=== PATIENT | male | born 1970 | race Caucasian/White ===

== ENCOUNTER 2020-03-06 05:04 | Emergency (ER) | payer BC, OTHER ==
[~2020-03-06] VITALS: Ht 190.5 cm; Wt 122.8 kg
--- OUTSIDE RECORDS SUMMARY | 2020-03-06 05:11 | XMS REPORT | Continuity of Care Document ---
Author Organization Unknown Address Unknown Phone Unavailable Allergies There is no data. Medications There is no data. Problems There is no data. Procedures There is no data. Results There is no data. Encounters ACCT No. Visit Date/Time Discharge Status Pt. Type Provider Facility Loc./Unit Complaint [id number] 03/06/2020 05:09:[address] Emergency EMMANUEL INIGUEZ DO Via [facility] ER FS WEAKNESS,LIGHT HEADED,TROBLE SWALLOWING
--- NOTE | 2020-03-06 05:33 | ED General ---
General Chief Complaint: General Problems/Pain Stated Complaint: WEAKNESS,LIGHT HEADED,TROBLE SWALLOWING Nursing Triage Note: pt states he started feeling dizzy at work, states he has had thick oral secretions the past 2 days, took an otc cold and flu medication, pt feels like breathing is labored at times, no increased temp Nursing Sepsis Screen: No Definite Risk Source of Information: Patient Exam Limitations: No Limitations History of Present Illness Date Seen by Provider: Mar 06, 2020 Time Seen by Provider: 05:15 Initial Comments 49-year-old male presents with 2 day history of feeling dizzy at work and having thick oral secretions. Patient has been taking [id number] cold and flu medication feels like his breathing gets labored at times but he has no fever and no headache. Patient is aware of the risks of coronavirus. He has not been traveling has not been anyone sick he has no shortness of breath has no fevers and he has no lower tract respiratory infection. He denies any history of cardiac pulmonary renal or GI disease. He has seasonal allergies. He states he feels dizzy when he sits down with standing up he feels better and is dispensed standing since he came into the emergency room. Patient has given informed consent for diagnostic and therapeutic services and influenza A and B screen and rapid strep screen has been ordered and obtained. Timing/Duration: 1-2 Days Severity: Moderate Modifying Factors: improves with Movement (worse when sitting) Associated Systoms: Weakness, Other (dizziness with sitting) Allergies and Home Medications Allergies Coded Allergies: No Known Drug Allergies (Unverified , 03/06/20) Patient Home Medication List Home Medication List Reviewed: Yes Review of Systems Review of Systems Constitutional: see HPI, dizziness (when sitting), weakness EENTM: see HPI, throat pain (and increased discharge) Respiratory: see HPI, phlegm, other (increased oral secretions and throat secretions no stridor no wheezing) Cardiovascular: no symptoms reported (is better standing up) Gastrointestinal: no symptoms reported Genitourinary: no symptoms reported Musculoskeletal: no symptoms reported Skin: no symptoms reported Psychiatric/Neurological: No Symptoms Reported Hematologic/Lymphatic: No Symptoms Reported Immunological/Allergic: no symptoms reported Past Dfjoyen-Adrzfr-Scyfft Hx Past Med/Social Hx: Reviewed Nursing Past Med/Soc Hx Patient Social History Alcohol Use: Occasionally Uses Recreational Drug Use: No Smoking Status: Never a Smoker Recent Foreign Travel: No Contact w/Someone Who Travel: No Recent Infectious Disease Expo: No Recent Hopitalizations: No Physical Abuse: No Sexual Abuse: No Mistreated: No Fear: No Seasonal Allergies Seasonal Allergies: No Past Medical History Surgeries: No Respiratory: No Cardiac: No Neurological: No Genitourinary: No Gastrointestinal: No Musculoskeletal: No Endocrine: No HEENT: No Cancer: No Psychosocial: No Integumentary: No Blood Disorders: No Physical Exam Vital Signs Vital Signs - First Documented 03/06/20 05:17 Temp 36.6 Pulse 99 Resp 18 B/P (MAP) 170/103 (125) Pulse Ox 97 O2 Delivery Room Air Capillary Refill : Less Than 3 Seconds Height, Weight, BMI Height: '" Weight: lbs. oz. kg; 33.00 BMI Method: General Appearance: WD/WN, Anxious, Other (dizziness and increased oral secretions but no wheezing or stridor no shortness of breath no fever) Eyes: Bilateral Eye Normal Inspection, Bilateral Eye PERRL, Bilateral Eye EOMI, Bilateral Eye Conjunctivae Pale (no evidence of conjunctival injection) HEENT: PERRL/EOMI, TMs Normal, Normal ENT Inspection, Pharynx Normal, Moist Mucous Membranes Neck: Full Range of Motion, Normal Inspection, Non Tender, Supple Respiratory: Chest Non Tender, Lungs Clear, Normal Breath Sounds, No Accessory Muscle Use, No Respiratory Distress (no stridor no shortness of breath) Cardiovascular: Regular Rate, Rhythm, No Edema, No Gallop, No JVD, No Murmur, Normal Peripheral Pulses Gastrointestinal: Normal Bowel Sounds, No Organomegaly, No Pulsatile Mass, Non Tender, Soft Back: Normal Inspection, No CVA Tenderness, No Vertebral Tenderness Extremity: Normal Capillary Refill, Normal Inspection, Normal Range of Motion, Non Tender, No Calf Tenderness Neurologic/Psychiatric: Alert, Oriented x3, No Motor/Sensory Deficits, Normal Mood/Affect, manager acquisition II-XII Norm as Tested Skin: Normal Color, Warm/Dry Lymphatic: No Adenopathy Progress/Results/Core Measures Suspected Sepsis Recent Fever Within 48 Hours: No Infection Criteria Present: None New/Unexplained Altered Menta: No Sepsis Screen: No Definite Risk SIRS Temperature: Pulse: 99 Respiratory Rate: 18 Blood Pressure 170 /103 Mean: 125 Results/Orders Lab Results Laboratory Tests Test 03/06/20 05:25 Range/Units Group A Streptococcus Screen NEGATIVE NEGATIVE Micro Results Microbiology 03/06/20 Influenza Types A,B Antigen (DONNA) - Final, Complete My Orders Orders - EMMANUEL INIGUEZ DO Influenza A And B Antigens (03/06/20 05:26) Rapid Strep A Screen (03/06/20 05:26) Vital Signs/I&O 03/06/20 05:17 Temp 36.6 Pulse 99 Resp 18 B/P (MAP) 170/103 (125) Pulse Ox 97 O2 Delivery Room Air Capillary Refill : Less Than 3 Seconds Blood Pressure Mean: 125 Progress Note : Time: 06:22 Progress Note Patient has negative influenza A and influenza B is negative rapid strep. He is continuing to walk in the room and states that he has no symptoms when he is walking but feels dizzy when he sits down there does not appear to be a positional component to the dizziness. Patient's tympanic membranes are both normal. Patient will follow up with his primary care provider drink plenty of fluids concentrate on rest and monitor for fevers headaches shortness of breath or any signs of lower tract infection. I do not feel he has coronavirus and has no symptoms nor risk factors of such. Departure Impression Primary Impression: Fatigue Additional Impressions: Dehydration Viral syndrome Disposition: 01 HOME, SELF-CARE Condition: Improved Departure-Patient Inst. Decision time for Depature: 06:24 Referrals: NO,LOCAL PHYSICIAN (PCP) Primary Care Physician Patient Instructions: Dehydration, Adult (DC), Dizziness, Nonvertigo, (DC), Viral Pharyngitis Add. Discharge Instructions: She was negative for influenza A and B and rapid strep. Appears to have mild dehydration and most likely has a viral pharyngitis. Patient should hydrate with water continue with Tylenol as needed monitor for fevers shortness of breath or tract infection symptoms. Patient will follow-up with his primary care provider or the community care clinic. All discharge instructions reviewed with patient and/or family. Voiced understanding. Work/School Note: Work Release Form Date Seen in the Emergency Department: Mar 06, 2020 Return to Work: Mar 10, 2020 Restrictions: No Restrictions EMMANUEL INIGUEZ DO Mar 06, 2020 05:33
[2020-03-06 06:30] VITALS: BP 170/103
== END 2020-03-06 06:30 | disposition home or self-care (01) ==
LOC: ER FS 05:09
DX: B34.9 Viral infection, unspecified (principal); R53.83 Other fatigue; E86.0 Dehydration
CPT/HCPCS: 87430; 87804

== ENCOUNTER → 2020-03-12 | Outpatient (CLI) | payer BC ==
[2020-03-12 08:33] LABS: BASOPHILS # (AUTO) 0.1 10^3/uL (0.0-0.1); BASOPHILS % (AUTO) 1 % (0-10); EOSINOPHILS # (AUTO) 0.1 10^3/uL (0.0-0.3); EOSINOPHILS % (AUTO) 2 % (0-10); HEMATOCRIT 46 % (40-54); HEMOGLOBIN 16.3 G/DL (13.3-17.7); LYMPHOCYTES % (AUTO) 32 % (12-44); MEAN CORPUSCULAR HEMOGLOBIN 30 PG (25-34); MEAN CORPUSCULAR HGB CONC 35 G/DL (32-36); MEAN CORPUSCULAR VOLUME 84 FL (80-99); MEAN PLATELET VOLUME 8.9 FL (7.4-10.4); MONOCYTES # (AUTO) 0.5 X 10^3 (0.0-1.0); MONOCYTES % (AUTO) 8 % (0-12); NEUTROPHILS # (AUTO) 3.5 X 10^3 (1.8-7.8); NEUTROPHILS % (AUTO) 57 % (42-75); PLATELET COUNT 310 10^3/uL (130-400); RED CELL DISTRIBUTION WIDTH 12.2 % (10.0-14.5); WHITE BLOOD COUNT 6.2 10^3/uL (4.3-11.0)
[2020-03-12 08:52] LABS: ALANINE AMINOTRANSFERASE 80 U/L (0-55); ALBUMIN 4.7 GM/DL (3.2-4.5); ALKALINE PHOSPHATASE 109 U/L (40-136); BILIRUBIN,TOTAL 0.5 MG/DL (0.1-1.0); BUN/CREATININE RATIO 11; CALCIUM 9.9 MG/DL (8.5-10.1); CARBON DIOXIDE 29 MMOL/L (21-32); CHLORIDE 98 MMOL/L (98-107); CREATININE SERUM 1.05 MG/DL (0.60-1.30); GFR ESTIMATED > 60; GLUCOSE 101 MG/DL (70-105); POTASSIUM 4.2 MMOL/L (3.6-5.0); SODIUM 137 MMOL/L (135-145)
[2020-03-12 14:57] LABS: TRIGLYCERIDES 196 MG/DL (<150); VLDL CHOLESTEROL 39 MG/DL (5-40)
[2020-03-12 15:02] LABS: CHOLESTEROL 195 MG/DL (< 200)
[2020-03-12 15:03] LABS: HDL CHOLESTEROL 33 MG/DL (40-60)
== END ==
LOC: LAB FS 03-11 10:25
PROVIDERS: ATTEND Family Medicine
DX: Z00.00 Encounter for general adult medical examination without abnormal findings (principal); Z13.1 Encounter for screening for diabetes mellitus; R53.83 Other fatigue; R63.1 Polydipsia
CPT/HCPCS: 36415; 80053; 80061; 83036; 85025

== ENCOUNTER 2020-04-03 03:53 | Emergency (ER) | payer BC ==
[~2020-04-03] VITALS: Ht 190 cm; Wt 122.5 kg
--- OUTSIDE RECORDS SUMMARY | 2020-04-03 04:00 | XMS REPORT | Continuity of Care Document ---
Author Organization Unknown Address Unknown Phone Unavailable Allergies Active Description Code Type Severity Reaction Onset Reported/Identified Relationship to Patient Clinical Status Yes No Known Drug Allergies [id number] Drug Allergy Unknown N/A 03/06/2020 Medications There is no data. Problems Date Dx Coded Attending Type Code Diagnosis Diagnosed By 03/06/2020 HIRA , EMMANUEL H Ot B34.9 VIRAL INFECTION, UNSPECIFIED 03/06/2020 HIRA DO, EMMANUEL H Ot E86.0 DEHYDRATION 03/06/2020 HIRA DO, EMMANUEL H Ot R4 2 DIZZINESS AND GIDDINESS 03/06/2020 HIRA DO, EMMANUEL H Ot R53.83 OTHER FATIGUE 03/08/2020 HIRA DO, EMMANUEL H Ot B34.9 VIRAL INFECTION, UNSPECIFIED 03/08/2020 HIRA DO, EMMANUEL H Ot E86.0 DEHYDRATION 03/08/2020 HIRA DO, EMMANUEL H Ot R4 2 DIZZINESS AND GIDDINESS 03/08/2020 HIRA DO, EMMANUEL H Ot R53.83 OTHER FATIGUE 03/13/2020 GODWIN MCCARTNEY MD Ot R53. 83 OTHER FATIGUE 03/13/2020 GODWIN MCCARTNEY MD Ot R63. 1 POLYDIPSIA 03/13/2020 GODWIN MCCARTNEY MD Ot Z00. 00 ENCNTR FOR GENERAL ADULT MEDICAL EXAM W/ 03/13/2020 GODWIN MCCARTNEY MD Ot Z13. 1 ENCOUNTER FOR SCREENING FOR DIABETES THANH 03/17/2020 GODWIN MCCARTNEY MD Ot R53. 83 OTHER FATIGUE 03/17/2020 GODWIN MCCARTNEY MD Ot R63. 1 POLYDIPSIA 03/17/2020 GODWIN MCCARTNEY MD Ot Z00. 00 ENCNTR FOR GENERAL ADULT MEDICAL EXAM W/ 03/17/2020 GODWIN MCCARTNEY MD Ot Z13. 1 ENCOUNTER FOR SCREENING FOR DIABETES THANH 03/26/2020 GODWIN MCCARTNEY MD Ot R53. 83 OTHER FATIGUE 03/26/2020 GODWIN MCCARTNEY MD Ot R63. 1 POLYDIPSIA 03/26/2020 BIB OSEGUERA, GODWIN Mendiola Ot Z00. 00 ENCNTR FOR GENERAL ADULT MEDICAL EXAM W/ 03/26/2020 GODWIN MCCARTNEY MD Ot Z13. 1 ENCOUNTER FOR SCREENING FOR DIABETES THANH Procedures There is no data. Results Test Result Range Streptococcus pyogenes antigen detection - 03/06/20 05:25 Streptococcus pyogenes antigen detection NEGATIVE NEGATIVE Influenza virus A and B antigen detectio n - 03/06/20 05:25 FLU RESULT NEGATIVE FOR INFLUENZA A AND B ANTIGENS BY IA NRG Bacterial throat culture - 03/06/20 05:2 5 Bacterial throat culture [id number] NRG FREE TEXT EXTERNAL PLUS RARE COLONY OF BETA STREPT OCOCCUS NRG QUANTITY OF GROWTH Abundant Growth NRG FREE TEXT EXTERNAL 2 G. NRG Complete blood count (CBC) with automate d white blood cell (WBC) differential - 03/12/20 08:19 Blood leukocytes automated count (number/volume) 6.2 10*3/uL 4.3-11.0 Blood erythrocytes automated count (number/volume) 5.51 10*6/uL 4.35-5.85 Venous blood hemoglobin measurement (mass/volume) 16.3 g/dL 13.3-17.7 Blood hematocrit (volume fraction) 46 % 40-54 Automated erythrocyte mean corpuscular volume 84 [ foz_us] 80-99 Automated erythrocyte mean corpuscular h emoglobin (mass per erythrocyte) 30 pg 25-34 Automated erythrocyte mean corpuscular h emoglobin concentration measurement (mass/volume) 35 g/dL 32-36 Automated erythrocyte distribution width ratio 12. 2 % 10.0- 14.5 Automated blood platelet count (count/volume) 310 10*3/uL 130-400 Automated blood platelet mean volume measurement 8.9 [foz_us] 7.4-10.4 Automated blood neutrophils/100 leukocytes 57 % 42-75 Automated blood lymphocytes/100 leukocytes 32 % 12-44 Blood monocytes/100 leukocytes 8 % 0-12 Automated blood eosinophils/100 leukocytes 2 % 0-10 Automated blood basophils/100 leukocytes 1 % 0-10 Blood neutrophils automated count (number/volume) 3.5 10*3 1.8-7.8 Blood lymphocytes automated count (number/volume) 2.0 10*3 1.0-4.0 Blood monocytes automated count (number/volume) 0. 5 10*3 0.0-1.0 Automated eosinophil count 0.1 10*3/uL 0 .0-0.3 Automated blood basophil count (count/volume) 0.1 10*3/uL 0.0-0.1 Comprehensive metabolic panel - 03/12/20 08:19 Serum or plasma sodium measurement (moles/volume) 137 mmol/L 135-145 Serum or plasma potassium measurement (moles/volume) 4.2 mmol/L 3.6-5.0 Serum or plasma chloride measurement (moles/volume) 98 mmol/L 98-107 Carbon dioxide 29 mmol/L 21-32 Serum or plasma anion gap determination (moles/volume) 10 mmol/L 5-14 Serum or plasma urea nitrogen measurement (mass/volume ) 12 mg/dL 7-18 Serum or plasma creatinine measurement (mass/volume) 1.05 mg/dL 0.60-1.30 Serum or plasma urea nitrogen/creatinine mass ratio 11 NRG Serum or plasma creatinine measurement w ith calculation of estimated glomerular filtration rate > NRG Serum or plasma glucose measurement (mass/volume) 101 mg/dL 70-105 Serum or plasma calcium measurement (mass/volume) 9.9 mg/dL 8.5-10.1 Serum or plasma total bilirubin measurement (mass/volu me) 0.5 mg/dL 0.1-1.0 Serum or plasma alkaline phosphatase mu surement (enzymatic activity/volume) 109 U/L 40-136 Serum or plasma aspartate aminotransfera se measurement (enzymatic activity/volume) 42 U/L 5-34 Serum or plasma alanine aminotransferase measurement (enzymatic activity/volume) 80 U/L 0-55 Serum or plasma protein measurement (mass/volume) 8.0 g/dL 6.4-8.2 Serum or plasma albumin measurement (mass/volume) 4.7 g/dL 3.2-4.5 Lipid 1996 panel - 03/12/20 08:19 Serum or plasma triglyceride measurement (mass/volume) 196 mg/dL <150 Serum or plasma cholesterol measurement (mass/volume) 195 mg/dL < 200 Serum or plasma cholesterol in HDL measurement (mass/v olume) 33 mg/dL 40-60 Cholesterol in LDL [mass/volume] in serum or plasma by direct assay 154 mg/dL 1-129 Serum or plasma cholesterol in VLDL measurement (mass/ volume) 39 mg/dL 5-40 Hemoglobin A1c measurement - 03/12/20 08 :19 Blood hemoglobin A1C measurement (mass/volume) 4.8 % 4.0-5.6 MEAN BLOOD GLUCOSE 91 % <=126 Encounters ACCT No. Visit Date/Time Discharge Status Pt. Type Provider Facility Loc./Unit Complaint [id number] 03/12/2020 08:14:00 23:59:59 CLS Outpatient BIB OSEGUERA, GODWIN Mendiola Via [facility] LAB FS FATIGUE [id number] 03/06/2020 05:09:00 06:30:00 DIS Emergency EMMANUEL INIGUEZ DO Via [facility] ER FS WEAKNESS,LIGHT HEADED,T ROUBLE SWALLOWING
[2020-04-03 04:13] LABS: BILIRUBIN,URINE NEGATIVE (NEGATIVE); CLARITY,URINE CLEAR; COLOR,URINE YELLOW; GLUCOSE, URINE (UA) NEGATIVE (NEGATIVE); KETONES,URINE NEGATIVE (NEGATIVE); LEUKOCYTE ESTERASE ,URINE NEGATIVE (NEGATIVE); NITRITE,URINE NEGATIVE (NEGATIVE); PROTEIN,URINE NEGATIVE (NEGATIVE)
[2020-04-03] MEDS ORDERED: ASPIRIN 81 MG CHEW (CHILDREN'S ASA) PO ONE (04:15)
[2020-04-03 04:19] LABS: BACTERIA,URINE NEGATIVE /HPF
[2020-04-03 04:31] LABS: AMPHETAMINE SCREEN, URINE NEGATIVE (NEGATIVE); BARBITURATE SCREEN URINE NEGATIVE (NEGATIVE); BENZODIAZEPINES SCREEN URINE NEGATIVE (NEGATIVE); CANNABINOID SCREEN, URINE NEGATIVE (NEGATIVE); COCAINE SCREEN URINE NEGATIVE (NEGATIVE); METHADONE STAT NEGATIVE (NEGATIVE); METHAMPHETAMINE SCREEN URINE S NEGATIVE (NEGATIVE); OPIATE SCREEN URINE NEGATIVE (NEGATIVE); OXYCODONE STAT NEGATIVE (NEGATIVE); PROPOXYPHENE STAT NEGATIVE (NEGATIVE); TRICYCLIC ANTIDEPRESSANTS SCRE NEGATIVE (NEGATIVE)
--- NOTE | 2020-04-03 04:32 | ED Chest Pain ---
General Chief Complaint: Chest Pain Stated Complaint: CHEST TIGHTNESS,WEAK,DEHYDRATED,SOB Nursing Triage Note: PT AMBULATES TO RM 5 WITH C/O INTERM. CHEST TIGHTNESS/PAIN WORSE WITH MOVEMENT, DIZZINESS AND DEHYDRATION X 1 MONTH, WORSE TONIGHT. PT DENIES ANY FEVER/CHILLS, STATES HE GETS SOB WHEN LAYING DOWN. Nursing Sepsis Screen: No Definite Risk Source: patient History of Present Illness Date Seen by Provider: April 03, 2020 Time Seen by Provider: 04:00 Initial Comments PT ARRIVES VIA POV FROM HOME STATES FOR OVER A MONTH HE HAS BEEN HAVING CHEST TIGHTNESS AND PAIN IN THE CENTER OF HIS CHEST STATES "I THINK I'M DEHYDRATED--I'VE BEEN DRINKING WATER--WHEN THIS FIRST HAPPENED, ONE NIGHT I WOKE UP AND I THOUGHT I WAS DEHYDRATED AND I DRANK 8 BOTTLES OF WATER" --REPEATS SEVERAL TIMES THAT HE "THINKS HE'S DEHYDRATED" STATES "ONE NIGHT I WOKE UP AND FELT LIKE I COULDN'T BREATH AND LIKE I HAD THIS CHEST PAIN" STATES HE HAS HAD IT "OFF AND ON -JUST WASN'T SEVERE" "USUALLY WHEN I LAY DOWN ON MY BACK IT HURTS HERE (POINTS TO CENTER OF HIS CHEST) AND I FEEL LIKE I HAVE TO ROLL OVER ON MY SIDE TO MAKE IT GO AWAY" NO PAIN IN CHEST NOW--STATES PAIN WAS 5/10 EARLIER AT HOME. STATES IT DOES NOT OCCUR DURING THE DAY--ONLY AT NIGHT WHEN HE IS SLEEPING ON HIS BACK ALSO STATES IT DOES OCCUR SOMETIMES IF HE COUGHS OR SNEEZES DOES REPORT THAT HE ATE JUST BEFORE HE WENT TO BED. HAS NOT TAKEN ANYTHING FOR HIS SYMPTOMS STATES LATER--"MY WHOLE BODY FELT WEAK" DENIES SHORTNESS OF BREATH--"EVERY ONCE IN AWHILE I HAVE TO TAKE A DEEP BREATH" NO COUGH NO FEVER/SWEATS CHILLS NO NAUSEA/VOMITING C/O SOME DIZZINESS STATES "MY HEART FEELS LIKE IT IS BEATING FASTER THAN NORMAL SOMETIMES" NO SWELLING IN LEGS/FEET OR PAIN IN [place] STATES HIS THROAT FEELS TIGHT--"LIKE I'M DEHYDRATED" DENIES ANY UNUSUAL STRESS OR ANY NEW/DIFFERENT ACTIVITIES AT HOME OR WORK. SEEN AT [facility] 03/06/20 FOR THIS PROBLEM-NO CAUSE FOUND SEEN IN FOLLOW UP BY DR. GODWIN MCCARTNEY ( FIRST AND ONLY TIME HE HAS SEEN HIM) AND HAD LAB DONE--PT REPORTS THAT "EVERYTHING WAS FINE" BUT DOES NOT KNOW WHAT TESTS WERE DONE. 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 NO ONE AT WORK IS ILL NO KNOWN SICK CONTACTS OR EXPOSURE TO COVID-19. PCP: DR. Leann MCCARTNEY Allergies and Home Medications Allergies Coded Allergies: No Known Drug Allergies (Unverified , 04/03/20) Home Medications Pantoprazole Sodium 40 Mg Tablet.dr, 40 MG PO DAILY Prescribed by: CORINNA HARMON on 04/03/2059 Sucralfate 1 Gm Tablet, 1 GM PO QID Prescribed by: CORINNA HARMON on 04/03/2059 Patient Home Medication List Home Medication List Reviewed: Yes Review of Systems Review of Systems Constitutional: see HPI; No chills, No diaphoresis; dizziness; No fever, No malaise, No weakness EENTM: See HPI; No Blurred Vision, No Throat Pain, No Throat Swelling Respiratory: See HPI; Denies Cough, Denies Shortness of Air, Denies Wheezing Cardiovascular: See HPI, Chest Pain; Denies Edema; Lightheadedness, Palpitations; Denies Syncope Gastrointestinal: No Symptoms Reported; Denies Abdominal Pain, Denies Diarrhea, Denies Nausea, Denies Poor Appetite, Denies Poor Fluid Intake, Denies Vomiting Genitourinary: No Symptoms Reported Musculoskeletal: no symptoms reported Skin: no symptoms reported Psychiatric/Neurological: Anxiety; Denies Headache, Denies Numbness, Denies Paresthesia, Denies Seizure, Denies Tingling, Denies Weakness Endocrine: No Symptoms Reported Hematologic/Lymphatic: No Symptoms Reported Past Axmhcii-Sgefck-Jhqggt Hx Past Med/Social Hx: Reviewed and Corrections made Patient Social History Alcohol Use: Occasionally Uses Recreational Drug Use: No Smoking Status: Never a Smoker Recent Foreign Travel: No Contact w/Someone Who Travel: No Recent Infectious Disease Expo: No Recent Hopitalizations: No Seasonal Allergies Seasonal Allergies: No Past Medical History Surgeries: No Respiratory: No Cardiac: No Neurological: No Reproductive Disorders: No Genitourinary: No Gastrointestinal: No Musculoskeletal: No Endocrine: No HEENT: No Cancer: No Psychosocial: No Integumentary: No Blood Disorders: No Physical Exam Vital Signs Vital Signs - First Documented 04/03/20 04:00 Temp 36.4 Pulse 81 Resp 20 B/P (MAP) 158/93 (114) Pulse Ox 100 O2 Delivery Room Air Capillary Refill : Less Than 3 Seconds Height, Weight, BMI Height: '" Weight: lbs. oz. kg; 33.00 BMI Method: General Appearance: No Apparent Distress, WD/WN, Anxious (VERY ANXIOUS) HEENT: PERRL/EOMI Neck: Full Range of Motion, Normal Inspection, Non Tender, Supple; No Carotid Bruit, No JVD Respiratory: Chest Non Tender, Normal Breath Sounds, No Accessory Muscle Use, No Respiratory Distress Cardiovascular: Regular Rate, Rhythm, No Edema, No JVD, No Murmur, Normal Peripheral Pulses Gastrointestinal: Normal Bowel Sounds, No Organomegaly, No Pulsatile Mass, Non Tender, Soft Extremity: Normal Capillary Refill, Normal Inspection, Normal Range of Motion, Non Tender, No Calf Tenderness, No Pedal Edema Neurologic/Psychiatric: Alert, Oriented x3, No Motor/Sensory Deficits, station mechanic II- XII Norm as Tested Skin: Normal Color, Warm/Dry Progress/Results/Core Measures Results/Orders Lab Results Laboratory Tests Test 04/03/20 04:01 04/03/20 04:20 Range/Units Urine Color YELLOW Urine Clarity CLEAR Urine pH 8.0 5-9 Urine Specific [place] <=1.005 1.016-1.022 Urine Protein NEGATIVE NEGATIVE Urine Glucose (UA) NEGATIVE NEGATIVE Urine Ketones NEGATIVE NEGATIVE Urine Nitrite NEGATIVE NEGATIVE Urine Bilirubin NEGATIVE NEGATIVE Urine Urobilinogen 0.2 < = 1.0 MG/DL Urine Leukocyte Esterase NEGATIVE NEGATIVE Urine RBC (Auto) NEGATIVE NEGATIVE Urine RBC NONE /HPF Urine WBC NONE /HPF Urine Crystals NONE /LPF Urine Bacteria NEGATIVE /HPF Urine Casts NONE /LPF Urine Mucus NEGATIVE /LPF Urine Culture Indicated NO Urine Opiates Screen NEGATIVE NEGATIVE Urine Oxycodone Screen NEGATIVE NEGATIVE Urine Methadone Screen NEGATIVE NEGATIVE Urine Propoxyphene Screen NEGATIVE NEGATIVE Urine Barbiturates Screen NEGATIVE NEGATIVE Ur Tricyclic Antidepressants Screen NEGATIVE NEGATIVE Urine Phencyclidine Screen NEGATIVE NEGATIVE Urine Amphetamines Screen NEGATIVE NEGATIVE Urine Methamphetamines Screen NEGATIVE NEGATIVE Urine Benzodiazepines Screen NEGATIVE NEGATIVE Urine Cocaine Screen NEGATIVE NEGATIVE Urine Cannabinoids Screen NEGATIVE NEGATIVE White Blood Count 6.0 4.3-11.0 10^3/uL Red Blood Count 5.07 4.35-5.85 10^6/uL Hemoglobin 14.9 13.3-17.7 G/DL Hematocrit 42 40-54 % Mean Corpuscular Volume 83 80-99 FL Mean Corpuscular Hemoglobin 29 25-34 PG Mean Corpuscular Hemoglobin Concent 36 32-36 G/DL Red Cell Distribution Width 12.7 10.0-14.5 % Platelet Count 241 130-400 10^3/uL Mean Platelet Volume 9.2 7.4-10.4 FL Neutrophils (%) (Auto) 59 42-75 % Lymphocytes (%) (Auto) 27 12-44 % Monocytes (%) (Auto) 10 0-12 % Eosinophils (%) (Auto) 4 0-10 % Basophils (%) (Auto) 0 0-10 % Neutrophils # (Auto) 3.6 1.8-7.8 X 10^3 Lymphocytes # (Auto) 1.6 1.0-4.0 X 10^3 Monocytes # (Auto) 0.6 0.0-1.0 X 10^3 Eosinophils # (Auto) 0.2 0.0-0.3 10^3/uL Basophils # (Auto) 0.0 0.0-0.1 10^3/uL Prothrombin Time 13.4 12.2-14.7 SEC INR Comment 1.0 0.8-1.4 Activated Partial Thromboplast Time 28 24-35 SEC Sodium Level 136 135-145 MMOL/L Potassium Level 3.5 L 3.6-5.0 MMOL/L Chloride Level 101 98-107 MMOL/L Carbon Dioxide Level 23 21-32 MMOL/L Anion Gap 12 5-14 MMOL/L Blood Urea Nitrogen 12 7-18 MG/DL Creatinine 0.98 0.60-1.30 MG/DL Estimat Glomerular Filtration Rate > 60 BUN/Creatinine Ratio 12 Glucose Level 106 H 70-105 MG/DL Calcium Level 9.3 8.5-10.1 MG/DL Corrected Calcium 9.1 8.5-10.1 MG/DL Magnesium Level 1.7 1.6-2.4 MG/DL Total Bilirubin 0.5 0.1-1.0 MG/DL Aspartate Amino Transf (AST/SGOT) 26 5-34 U/L Alanine Aminotransferase (ALT/SGPT) 30 0-55 U/L Alkaline Phosphatase 96 40-136 U/L Total Creatine Kinase 99 30-200 U/L Creatine Kinase MB 0.9 <6.6 NG/ML Myoglobin 32.8 10.0-92.0 NG/ML Troponin I < 0.028 <0.028 NG/ML B-Type Natriuretic Peptide < 10.0 <100.0 PG/ML Total Protein 7.6 6.4-8.2 GM/DL Albumin 4.2 3.2-4.5 GM/DL Amylase Level 47 25-125 U/L Lipase 19 8-78 U/L TSH [place] Testing 1.21 0.35-4.94 UIU/ML My Orders Orders - CORINNA HARMON DO Cbc With Automated Diff (04/03/20 04:01) Magnesium (04/03/20 04:01) Chest 1 View, Ap/Pa Only (04/03/20 04:01) Ekg Tracing (04/03/20 04:01) Comprehensive Metabolic Panel (04/03/20 04:01) Myoglobin Serum (04/03/20 04:01) Protime With Inr (04/03/20 04:01) Partial Thromboplastin Time (04/03/20 04:01) O2 (04/03/20 04:01) Monitor-Rhythm Ecg Trace Only (04/03/20 04:01) Ed Iv/Invasive Line Start (04/03/20 04:01) Creatine Kinase (04/03/20 04:01) Creatine Kinase Mb (04/03/20 04:01) Lipase (04/03/20 04:01) Amylase (04/03/20 04:01) BNP (04/03/20 04:01) Troponin I (04/03/20 04:01) Aspirin Chewable Tablet (Baby Aspirin Ch (04/03/20 04:15) Drug Screen Stat (Urine) (04/03/20 04:01) Thyroid Analyzer (04/03/20 04:01) Ua Culture If Indicated (04/03/20 04:01) Ct Angio Chest W (04/03/20 05:10) Iohexol Injection (Omnipaque 350 Mg/Ml 1 (04/03/20 05:45) Received Contrast (Hold Metformin- Contr (04/03/20 05:45) Ns (Ivpb) (Sodium Chloride 0.9% Ivpb Bag (04/03/20 05:45) Pantoprazole Tablet (Protonix Tablet) (04/03/20 06:00) Pantoprazole Tablet (Protonix Tablet) (04/03/20 05:55) Medications Given in ED Current Medications Medications Dose Ordered Sig/Hipolito Route Start Time Stop Time Status Last Admin Dose Admin Aspirin 324 mg ONCE ONCE PO 04/03/20 04:15 04/03/20 04:17 DC 04/03/20 04:11 324 MG Iohexol 100 ml ONCE ONCE IV 04/03/20 05:45 04/03/20 05:46 DC 04/03/20 05:45 100 ML Sodium Chloride 100 ml ONCE ONCE IV 04/03/20 05:45 04/03/20 05:46 DC 04/03/20 05:46 80 ML Vital Signs/I&O 04/03/20 04/03/20 04:00 04:17 Temp 36.4 Pulse 81 Resp 20 B/P (MAP) 158/93 (114) Pulse Ox 100 O2 Delivery Room Air Room Air Blood Pressure Mean: 114 Progress Progress Note : Progress Note UNEVENTFUL ER STAY NO CHEST PAIN OR OTHER SYMPTOMS DURING ER STAY Initial ECG Impression Date: April 03, 2020 Initial ECG Impression Time: 04:04 Initial ECG Rate: 80 Initial ECG Rhythm: Normal Sinus Diagnostic Imaging Comments CXR--NO ACUTE PROCESS, PENDING RADIOLOGIST REVIEW CT CHEST ANGIOGRAM--PER [facility] VIA FAX AT [phone] -INADEQUATE CONTRAST IN PULMONARY ARTERIES -THYROID NODULES -13 MM STONE IN NECK OF GALLBLADDER -COLONIC DIVERTICULOSIS, NO ACUTE DIVERTICULITIS Reviewed: Reviewed by Me Departure Impression Primary Impression: Chest pain Additional Impressions: Gallstone POSSIBLE GERD THYROID NODULES Disposition: 01 HOME, SELF-CARE Condition: Stable Departure-Patient Inst. Referrals: GODWIN MCCARTNEY MD (PCP/Family) Primary Care Physician Patient Instructions: Acid Reflux and GERD in Adults (DC), Chest Pain (DC), Gallbladder Diet, Gallstones (DC), Thyroid Nodules Add. Discharge Instructions: CLEAR LIQUIDS BLAND DIET--NO SPICY, GREASY/HIGH FAT OR ACIDIC FOODS OR DRINK FOLLOW UP WITH DR. MCCARTNEY THIS WEEK FOR FURTHER CARE All discharge instructions reviewed with patient and/or family. Voiced understanding. Scripts Pantoprazole Sodium (Protonix) 40 Mg Tablet. 40 MG PO DAILY, #15 TAB Prov: FAUSTINO,CORINNA K DO 04/03/20 Sucralfate (Carafate) 1 Gm Tablet 1 GM PO QID, #60 TAB Prov: FAUSTINOCORINNA K DO 04/03/20 FAUSTINO,CORINNA K DO April 03, 2020 04:32
[2020-04-03 04:36] LABS: BASOPHILS % (AUTO) 0 % (0-10); EOSINOPHILS # (AUTO) 0.2 10^3/uL (0.0-0.3); EOSINOPHILS % (AUTO) 4 % (0-10); HEMATOCRIT 42 % (40-54); HEMOGLOBIN 14.9 G/DL (13.3-17.7); LYMPHOCYTES # (AUTO) 1.6 X 10^3 (1.0-4.0); LYMPHOCYTES % (AUTO) 27 % (12-44); MEAN CORPUSCULAR HEMOGLOBIN 29 PG (25-34); MEAN CORPUSCULAR HGB CONC 36 G/DL (32-36); MEAN CORPUSCULAR VOLUME 83 FL (80-99); MEAN PLATELET VOLUME 9.2 FL (7.4-10.4); MONOCYTES # (AUTO) 0.6 X 10^3 (0.0-1.0); MONOCYTES % (AUTO) 10 % (0-12); NEUTROPHILS # (AUTO) 3.6 X 10^3 (1.8-7.8); NEUTROPHILS % (AUTO) 59 % (42-75); PLATELET COUNT 241 10^3/uL (130-400); RED CELL DISTRIBUTION WIDTH 12.7 % (10.0-14.5)
[2020-04-03 04:45] LABS: PROTHROMBIN TIME PATIENT 13.4 SEC (12.2-14.7)
[2020-04-03 04:47] LABS: ALBUMIN 4.2 GM/DL (3.2-4.5); CHLORIDE 101 MMOL/L (98-107); POTASSIUM 3.5 MMOL/L (3.6-5.0); SODIUM 136 MMOL/L (135-145)
[2020-04-03 04:48] LABS: AMYLASE 47 U/L (25-125); CALCIUM 9.3 MG/DL (8.5-10.1)
[2020-04-03 04:49] LABS: GLUCOSE 106 MG/DL (70-105); TOTAL PROTEIN 7.6 GM/DL (6.4-8.2)
[2020-04-03 04:50] LABS: CARBON DIOXIDE 23 MMOL/L (21-32)
[2020-04-03 04:51] LABS: BILIRUBIN,TOTAL 0.5 MG/DL (0.1-1.0)
[2020-04-03 04:52] LABS: ALKALINE PHOSPHATASE 96 U/L (40-136)
[2020-04-03 04:53] LABS: CREATININE SERUM 0.98 MG/DL (0.60-1.30); GFR ESTIMATED > 60
[2020-04-03 04:54] LABS: BUN/CREATININE RATIO 12
[2020-04-03 04:55] LABS: MAGNESIUM 1.7 MG/DL (1.6-2.4)
[2020-04-03 04:56] LABS: ALANINE AMINOTRANSFERASE 30 U/L (0-55)
[2020-04-03 04:57] LABS: CREATINE KINASE 99 U/L (30-200); LIPASE 19 U/L (8-78)
[2020-04-03 05:04] LABS: CREATINE KINASE MB 0.9 NG/ML (<6.6)
[2020-04-03 05:16] LABS: TSH (THYROID ANALYZER) 1.21 UIU/ML (0.35-4.94)
[2020-04-03] MEDS ORDERED: NS 100 ML (IVPB) BAG IV ONE (05:45)
[2020-04-03] MEDS ORDERED: IOHEXOL 350 MG/ML 100 ML (OMNIPAQUE 350) VIAL IV ONE (05:45)
[2020-04-03] MEDS ORDERED: HOLD METFORMIN - RECEIVED CONTRAST 20 ML VIAL IV SCH (05:45)
[2020-04-03] MEDS ORDERED: PANTOPRAZOLE 40 MG (PROTONIX) TAB PO ONE ×2 (05:55→06:00)
[2020-04-03] MEDS ORDERED: SUCR1TAB36 PO (05:59)
[2020-04-03] MEDS ORDERED: PANT40TA2 PO (05:59)
[2020-04-03 06:06] VITALS: BP 124/76
--- NOTE | 2020-04-03 07:57 | Diagnostic Imaging Report ---
INDICATION: Intermittent chest tightness for one month. FINDINGS: Frontal view of the chest demonstrates the lungs to be clear. The heart, mediastinum and pulmonary vascularity are normal. IMPRESSION: Normal portable chest. Dictated by: Dictated on workstation # [id number]
--- NOTE | 2020-04-03 08:04 | Diagnostic Imaging Report ---
PROCEDURE: CT angiography of the chest with contrast. TECHNIQUE: Multiple contiguous axial images were obtained through the chest after uneventful bolus administration of intravenous contrast. 3D reconstructed CTA MIP acquisitions were also performed. Auto Exposure Controls were utilized during the CT exam to meet ALARA standards for radiation dose reduction. INDICATION: Intermittent chest tightness for one month COMPARISON STUDIES: Chest from earlier today. FINDINGS: The contrast bolus is delayed. Contrast is already in the aorta with very little contrast in the pulmonary artery. No definite pulmonary emboli is identified. Moderate pulmonary emboli could be missed. There is no aortic dissection or aneurysm. Takeoff of the great vessels appear normal. Heart size is normal. There are mild calcifications of the coronary arteries. No pleural or pericardial effusions are present. The lungs are clear. Visualized portions of the abdomen demonstrate some gallstones. IMPRESSION: 1. Suboptimal bolus injection. No large pulmonary emboli are identified. 2. Cholelithiasis. 3. Several thyroid nodules are present. Consider ultrasound for further evaluation. 4. Some noninflamed diverticuli are seen in the visualized portions of the abdomen. Findings agree with [facility] report. Dictated by: Dictated on workstation # [id number]
== END 2020-04-03 06:06 | disposition home or self-care (01) ==
LOC: EDUNIT# 03:53 → ER 03:56
DX: R07.89 Other chest pain (principal); K80.20 Calculus of gallbladder without cholecystitis without obstruction; E07.89 Other specified disorders of thyroid
CPT/HCPCS: 36415; 71045; 71275; 80053; 80306; 81000; 82150; 82550; 82553; 83690; 83735; 83874; 83880; 84443; 84484; 85025; 85610; 85730; 93005; 93041

== ENCOUNTER 2020-04-18 10:38 | Outpatient (RCR) | payer BC ==
[~2020-04-18] VITALS: Ht 190 cm; Wt 122.0 kg
[~2020-04-18 10:38] MED LIST: PANT40TA2 PO; SUCR1TAB36 PO
== END 2020-04-18 14:33 | disposition home or self-care (01) ==
LOC: PREOP 10:38
PROVIDERS: ATTEND Surgery
DX: Z01.812 Encounter for preprocedural laboratory examination (principal); Z11.59 Encounter for screening for other viral diseases; K80.20 Calculus of gallbladder without cholecystitis without obstruction; K21.9 Gastro-esophageal reflux disease without esophagitis; K42.9 Umbilical hernia without obstruction or gangrene
CPT/HCPCS: 87635